=== PATIENT | female | born 1985 | race African-American/Black ===

== ENCOUNTER 2021-12-23 04:42 | Emergency (ER) | payer BC ==
[~2021-12-23] VITALS: Ht 172.7 cm; Wt 100.0 kg
[2021-12-23 04:49] VITALS: BP 119/76
== END 2021-12-23 07:11 | disposition home or self-care (01) ==
LOC: ER 04:42
DX: Z77.098 Contact with and (suspected) exposure to other hazardous, chiefly nonmedicinal, chemicals (principal); Z90.49 Acquired absence of other specified parts of digestive tract
CPT/HCPCS: 71045; 93005; 99283

== ENCOUNTER 2022-04-30 13:19 | Emergency (ER) | payer BC, OTHER ==
[~2022-04-30] VITALS: Ht 172.7 cm; Wt 114.0 kg
[2022-04-30 13:24] VITALS: BP 114/78
[2022-04-30] MEDS ORDERED: AMOX-494 MT (18:49)
[2022-04-30] MEDS ORDERED: HYDR-4001 MT (18:49)
== END 2022-04-30 14:19 | disposition left against medical advice (07) ==
LOC: ER 13:26
DX: Z53.21 Procedure and treatment not carried out due to patient leaving prior to being seen by health care provider (principal); Z98.890 Other specified postprocedural states

== ENCOUNTER 2022-04-30 17:38 | Emergency (ER) | payer BC ==
[~2022-04-30] VITALS: Ht 172.7 cm; Wt 113.0 kg
[2022-04-30 17:40] VITALS: BP 143/66
[2022-04-30] MEDS ORDERED: KETOROLAC 60MG/2ML VIAL IM ONE (18:30)
[2022-04-30] MEDS ORDERED: HYDROCODONE/ACETAMINOPHEN 5/325MG TABLET PO ONE (18:45)
[2022-04-30] MEDS ORDERED: HYDR-4001 MT (18:49)
[2022-04-30] MEDS ORDERED: AMOX-494 MT (18:49)
== END 2022-04-30 19:00 | disposition home or self-care (01) ==
LOC: ER 17:38
DX: H92.01 Otalgia, right ear (principal); T16.1XXA Foreign body in right ear, initial encounter; X58.XXXA Exposure to other specified factors, initial encounter; Y93.9 Activity, unspecified; Y92.9 Unspecified place or not applicable; Z98.890 Other specified postprocedural states
CPT/HCPCS: 99283; J1885